=== PATIENT | male | born 1955 | race Hispanic/Latino ===

== ENCOUNTER 2023-03-24 14:12 | Emergency (ER) | payer OTHER | END 2023-03-24 15:57 | disposition left against medical advice (07) | LOC: EDH 14:12 | DX: M79.602 Pain in left arm (principal); Z53.21 Procedure and treatment not carried out due to patient leaving prior to being seen by health care provider ==

== ENCOUNTER 2025-07-02 18:12 | Emergency (ER) | payer MEDICARE ==
[2025-07-02 18:18] VITALS: BP 148/87; PULSE 78; RESP 20; TEMP 98
--- NOTE | 2025-07-02 19:06 | NUR ---
PT CALLED OUT X3 TIMES AND NO ANSWER. SEARCHED ED LOBBY,RESTROOM,AND PARKING AREA. PER REGISTRATION PT WAS UPSET DUE TO LONG WAIT AND SEEN LEAVING THE PREMISES. NO IV IN PLACE.
--- NOTE | 2025-07-03 18:11 | EKG ---
[facility] Test Date: 2025-07-02 Test Time: 16:51:22 Pat Name: ABEL EMMANUEL Department: ED Room: Gender: M Hand [employer]er: [id number] : 1955 Requested By: JULIANN BANEGAS Order Number: [id number] Reading MD: Lennox Elliott Measurements Intervals [place] Rate: 80 P: 46 GA: 160 QRS: 17 QRSD: 107 T: 86 QT: 413 QTc: 478 Interpretive Statements Sinus rhythm PROBABLE ANTEROSEPTAL INFARCT, old No previous ECG available for comparison Electronically Signed On 07-03-2025 21:49:43 [employer] SUPPORT SPECIALIST by Lennox Elliott Please click the below link to view image of tracing.
== END 2025-07-02 19:06 | disposition left against medical advice (07) ==
LOC: EDH 18:12
DX: R07.9 Chest pain, unspecified (principal); Z53.21 Procedure and treatment not carried out due to patient leaving prior to being seen by health care provider
CPT/HCPCS: 93005; 99281; 99282; 99283